=== PATIENT | male | born 1945 | race Asian ===

== ENCOUNTER 2018-03-24 06:03 | Day surgery (SDC) | payer MEDICARE, OTHER ==
[~2018-03-24] VITALS: Ht 170.2 cm; Wt 77.3 kg
[~2018-03-24 06:03] MED LIST: ATEN25TA PO; BUPR150T8 PO; DIPH25 PO; DUTA.5 PO; FURO20 PO; LORA10TA7 PO; MELO-107 PO; MONT10TA21 PO; PRED10 PO; SODIUM CHLORIDE 0.9% 1,000 ML IV ONE; TRAZ-219 PO; ZOLP5 PO
[2018-03-24] MEDS ORDERED: DUTA.5 PO (06:46)
[2018-03-24] MEDS ORDERED: VITAD1000 PO (06:46)
[2018-03-24] MEDS ORDERED: BUDE10.2 IH (06:46)
[2018-03-24] MEDS ORDERED: FLUT1BLS IH (06:46)
[2018-03-24] MEDS ORDERED: DIPH12.55 PO (06:46)
[2018-03-24] MEDS ORDERED: OXYB5 PO (06:46)
[2018-03-24] MEDS ORDERED: LOSA25TA41 PO (06:46)
[2018-03-24] MEDS ORDERED: TAMS0.4C32 PO (06:46)
[2018-03-24] MEDS ORDERED: MONT10TA21 PO (06:46)
[2018-03-24] MEDS: SODIUM CHLORIDE 0.9% 1,000 ML IV ONE (07:08)
[2018-03-24] MEDS ORDERED: MIDAZOLAM HCL 2 MG/2 ML VIAL ONE (07:52)
[2018-03-24] MEDS ORDERED: FentaNYL CITRATE-PF 100 MCG/2 ML VIAL ONE (07:52)
[2018-03-24] MEDS: MethylPREDNISolone SOD SUCC 125 MG/2 ML VIAL IVP ONE (09:24)
[2018-03-24] MEDS ORDERED: ALBUTEROL SULFATE 2.5 MG/0.5 ML NEB SOLUTION NEB ONE (12:00)
[2018-03-24] MEDS ORDERED: BENZOCAINE 20% 50 MCG/SPRAY 57 GM TP ONE (12:00)
[2018-03-24] MEDS ORDERED: LIDOCAINE 2% 30 ML JELLY TP ONE (12:00)
[2018-03-24] MEDS ORDERED: OXYGEN THERAPY IH SCH (20:00)
== END 2018-03-24 10:10 | disposition home or self-care (01) ==
LOC: SURGERY 06:03
PROVIDERS: ATTEND Internal Medicine Critical Care Medicine
DX: J38.4 Edema of larynx (principal); B37.0 Candidal stomatitis; J98.09 Other diseases of bronchus, not elsewhere classified; J98.8 Other specified respiratory disorders; F17.210 Nicotine dependence, cigarettes, uncomplicated; Z85.118 Personal history of other malignant neoplasm of bronchus and lung; Z87.448 Personal history of other diseases of urinary system; Z98.890 Other specified postprocedural states; Z79.899 Other long term (current) drug therapy
CPT/HCPCS: 31623; 31624; 71045; 87015; 87070; 87101; 87205; 87206; 87220; 88108; 88312; J2250; J2930; J3010; J7030